=== PATIENT | male | born 1960 | race Asian ===

== ENCOUNTER 2017-06-28 23:17 | Emergency (ER) | payer SELFPAY ==
[2017-06-29] MEDS ORDERED: Lidocaine 1% w/Epinephrine 1:100K 20 ML VIAL ONE (00:39)
[2017-06-29] MEDS ORDERED: Adacel (T-DAP) 0.5 ML VIAL ONE (01:31)
== END 2017-06-29 02:00 | disposition home or self-care (01) ==
LOC: ERS 23:17
DX: S61.412A Laceration without foreign body of left hand, initial encounter (principal); W26.8XXA Contact with other sharp object(s), not elsewhere classified, initial encounter
CPT/HCPCS: 12002; 90471; 90715; J2001